=== PATIENT | male | born 1990 | race Two or more races ===

== ENCOUNTER 2016-07-24 16:22 | Emergency (ER) | payer MEDICAID ==
[~2016-07-24] VITALS: Ht 170.2 cm; Wt 97.5 kg
[2016-07-24 22:25] LABS: Basophils # (auto) 0.2 uL; Basophils % (auto) 1.3 % (0.0-2.0); Eosinophils # (auto) 0.3 uL; Eosinophils % (auto) 2.8 % (0.0-7.0); Hematocrit 46.5 % (41.0-53.0); Hemoglobin 15.5 g/dL (13.5-17.5); Lymphocytes # (auto) 2.8 uL; Lymphocytes % (auto) 24.1 % (10.0-50.0); Mean Corpuscular Hemoglobin 29.2 pg (28.0-32.0); Mean Corpuscular Hgb Conc. 33.3 g/dL (32.0-36.0); Mean Corpuscular Volume 87.8 fL (80.0-100.0); Mean Platelet Volume 7.8 fL (7.4-10.4); Monocytes # (auto) 0.6 uL; Monocytes % (auto) 5.3 % (0.0-12.0); Neutrophils # (auto) 7.6 uL; Neutrophils % (auto) 66.5 % (37.0-80.0); Platelet Count (auto) 355 10^3/uL (140-450); Red Cell Distribution Width 13.2 % (11.6-16.0); White Blood Cell 11.5 10^3/uL (4.4-10.8)
[2016-07-24 22:46] LABS: Albumin 4.1 g/dL (3.4-5.0); BUN/Creatinine Ratio 18.3; Bilirubin, Total 0.4 mg/dL (0.2-1.0); Total Protein 8.4 g/dL (6.4-8.2)
[2016-07-25] MEDS ORDERED: ACETAMINOPHEN 325 MG TAB PO ONE (08:15)
[2016-07-25] MEDS ORDERED: IOHEXOL 300 MG/ML 100ML BOTTLE IJ ONE (09:37)
[2016-07-25 13:15] VITALS: BP 117/48
== END 2016-07-25 14:35 | disposition home or self-care (01) ==
LOC: ER 16:34
DX: K61.0 Anal abscess (principal)
CPT/HCPCS: 36415; 74177; 80053; 85025; 85049; 99285; Q9967

== ENCOUNTER 2019-04-09 08:54 | Emergency (ER) | payer MEDICAID ==
[~2019-04-09] VITALS: Ht 167.6 cm; Wt 70.8 kg
[2019-04-09 09:00] VITALS: BP 124/77
== END 2019-04-09 10:08 | disposition home or self-care (01) ==
LOC: ER 08:58
DX: K61.0 Anal abscess (principal); K61.1 Rectal abscess; F17.210 Nicotine dependence, cigarettes, uncomplicated; F12.90 Cannabis use, unspecified, uncomplicated
CPT/HCPCS: 46050

== ENCOUNTER 2022-09-12 17:52 | Emergency (ER) | payer MEDICAID ==
[~2022-09-12] VITALS: Ht 175.3 cm; Wt 100.0 kg
[2022-09-12] MEDS ORDERED: SODIUM CHLORIDE 0.9% 1,000 ML IV ONE (18:30)
[2022-09-12] MEDS ORDERED: EPINEPHrine HCL 1 MG/1 ML AMP IM ONE (18:30)
[2022-09-12] MEDS ORDERED: FAMOTIDINE (10MG/ML) 2ML VL IV ONE (18:30)
[2022-09-12] MEDS ORDERED: DexAMETHasone SOD PHOS 10MG/1ML VIAL INJ IV ONE (18:30)
[2022-09-12 18:37] LABS: Basophils # (auto) 0 10 ^3/uL (0-0.2); Basophils % (auto) 0.5 % (0.0-2.0); Eosinophils # (auto) 0.1 10 ^3/uL (0-0.8); Eosinophils % (auto) 1.7 % (0.0-7.0); Hematocrit 46.9 % (41.0-53.0); Hemoglobin 16.4 g/dL (13.5-17.5); Lymphocytes # (auto) 2.1 10 ^3/uL (0.4-5.4); Lymphocytes % (auto) 25.4 % (10.0-50.0); Mean Corpuscular Hemoglobin 31.4 pg (28.0-32.0); Mean Corpuscular Hgb Conc. 34.8 g/dL (32.0-36.0); Mean Corpuscular Volume 90.3 fL (80.0-100.0); Monocytes # (auto) 0.6 10 ^3/uL (0-1.3); Neutrophils # (auto) 5.3 10 ^3/uL (1.6-8.6); Neutrophils % (auto) 65.4 % (37.0-80.0); Nucleated Red Blood Cells % 0.2 %; Red Cell Distribution Width 13.6 % (11.8-14.3); White Blood Cell 8.2 10^3/uL (4.4-10.8)
[2022-09-12 18:57] LABS: Calcium 8.7 mg/dL (8.5-10.1); Potassium 3.7 mmol/L (3.5-5.1)
[2022-09-12 19:01] LABS: BUN/Creatinine Ratio 11.1; Bilirubin, Total 0.3 mg/dL (0.2-1.0); Total Protein 7.5 g/dL (6.4-8.2)
[2022-09-12] MEDS ORDERED: EPIN0.3I27 IJ ×2 (22:13)
[2022-09-12 22:28] VITALS: BP 130/78
[2022-09-13] MEDS ORDERED: EPIN0.3I27 IJ (11:58)
== END 2022-09-12 22:27 | disposition home or self-care (01) ==
LOC: EDBD 17:52 → ER 17:52
DX: T78.2XXA Anaphylactic shock, unspecified, initial encounter (principal); F17.210 Nicotine dependence, cigarettes, uncomplicated; R07.89 Other chest pain
CPT/HCPCS: 36415; 71045; 80053; 85025; 96361; 96372; 96374; 96375; 99284; J0171; J1100; J3490; J7030

== ENCOUNTER 2024-09-06 13:06 | Emergency (ER) | payer MEDICAID ==
[~2024-09-06] VITALS: Ht 170.2 cm; Wt 100.9 kg
[~2024-09-06 13:06] MED LIST: EPIN0.3I27 IJ
--- NOTE | 2024-09-06 13:24 | ED.PDOC ---
HPI Allergic reaction HPI Comments 34 year old male presents to the ED with chief complaint of allergic reaction. Patient reports that he had started to experience generalized urticaria with associated itchiness and throat swelling since an hour ago. Patient relays that he has had multiple similar episodes in the past, noting that the time frame in between episodes has been shortening, with the last one being on 08/10. Patient denies any N/V, SOB, chest pain, dizziness, or headache. Chief Complaint: Allergic Reaction Time Seen by MD: 13:20 Primary Care Provider: SHANEKA Reviewed Notes: Nurses Notes, Medications, Allergies Allergies: Coded Allergies: NO KNOWN ALLERGIES (Unverified , 07/24/16) Home Meds Active Scripts Epinephrine (Anaphylaxis) (Symjepi) 0.3 Mg/0.3 Ml Inj, 0.3 MG IJ PRN PRN for 365 Days, #2 INJ Prov:CALI WAY MD 09/13/22 Information Source: Patient Mode of Arrival: Ambulatory Severity: Moderate Rash: Moderate SOB: None Difficulty swallowing: Moderate Pruritus: Moderate Timing: Hours Duration: Since onset Prehospital treatment: None Location: Face, Foot, Generalized, Head, Neck, Throat Exposed to: Unknown Developed: Pruritus, Rash, Throat Swelliing History of: Prior Similar Episodes Modyifying Factors: Diphenhydramine Past Medical History PAST MEDICAL HISTORY: Denies Surgical History: Denies all surgeries Family History Family History: Unknown Family History (Other): father had intestinal problems Social History Smoker: Cigarettes Alcohol: Heavy Drugs: Marijuana Lives In: Home Constitutional: denies: chills, diaphoresis, fatigue, fever, malaise, sweats, weakness, others EENTM: reports: throat swelling; denies: blurred vision, double vision, ear bleeding, ear discharge, ear drainage, ear pain, ear ringing, eye pain, eye redness, hearing loss, mouth pain, mouth swelling, nasal discharge, nose bleeding, nose congestion, nose pain, photophobia, tearing, throat pain, voice changes, others Respiratory: denies: cough, hemoptysis, orthopnea, SOB at rest, shortness of breath, SOB with excertion, stridor, wheezing, others Cardiovascular: denies: chest pain, dizzy spells, diaphoresis, Dyspnea on exertion, edema, irregular heart beat, left arm pain, lightheadedness, palpitations, PND, syncope, others Gastrointestinal: denies: abdomen distended, abdominal pain, blood streaked bowels, constipated, diarrhea, dysphagia, difficulty swallowing, hematemesis, melena, nausea, poor appetite, poor fluid intake, rectal bleeding, rectal pain, vomiting, others Genitourinary: denies: burning, dysuria, flank pain, frequency, hematuria, incontinence, penile discharge, penile sore, pain, testicle pain, testicle swelling, urgency, others Neurological: denies: dizziness, fainting, headache, left sided numbness, left sided weakness, numbness, paresthesia, pre-existing deficit, right sided numbness, right sided weakness, seizure, speech problems, tingling, tremors, weakness, others Musculoskeletal: denies: back pain, gout, joint pain, joint swelling, muscle pain, muscle stiffness, neck pain, others Integumetry: reports: change in color; denies: bruises, change in hair/nails, dryness, laceration, lesions, lumps, rash, wounds, others Allergic/Immunocompromised: reports: Hives, Itching; denies: Difficulty Healing, Frequent Infections, others Hematologic/Lymphatic: denies: anemia, blood clots, easy bleeding, easy bruising, swollen glands, others Endocrine: denies: excessive hunger, excessive sweating, excessive thirst, excessive urination, flushing, intolerance to cold, intolerance to heat, unex plained weight gain, unexplained weight loss, others Psychiatric: denies: anxiety, bipolar disorder, depression, hopeless, panic disorder, schizophrenia, sleepless, suicidal, others All Other Systems: Reviewed and Negative Physical Exam General Appearance: Moderate Distress, Normal HEENT: Normal ENT Inspection, PERRL/EOMI Neck: Full Range of Motion, Non-Tender, Normal, Normal Inspection Respiratory: Chest Non-Tender, No Accessory Muscle Use, No Respiratory Distress, Other (Coarse breath sounds) Cardiovascular: No Edema, No JVD, No Murmur, No Gallop, Normal Peripheral Pulses, Regular Rate/Rhythm Breast Exam: Deferred Gastrointestinal: No Organomegaly, Non Tender, No Pulsatile Mass, Normal Bowel Sounds, Soft Genitalia: Deferred Pelvic: Deferred Rectal: Deferred Extremities: No calf tenderness, Normal capillary refill, Normal inspection, Normal range of motion, Non-tender, No pedal edema Musculoskeletal : Apperance: Normal Neurologic: Alert, laborer aquatic life II-XII nml as Tested, No Motor Deficits, Normal Affect, Normal Mood, No Sensory Deficits Cerebellar Function: NOT DONE Reflexes: NOT DONE Skin: Dry, Normal Color, Rash (Face), Warm Peripheral Pulses: 3+ Radial (R), 3+ Radial (L) Lymphatic: No Adenopathy Was a procedure done? Was a procedure done?: No Differential diagnosis (all) Differential Diagnosis: Anaphylaxis, Angioedema X-Ray, Labs, Meds, VS Vital Signs Date Time Temp Pulse Resp B/P (MAP) Pulse Ox O2 Delivery O2 Flow Rate FiO2 09/06/24 14:19 82 16 135/80 (98) 97 09/06/24 13:41 82 20 98 Room Air* 0 21 09/06/24 13:41 99.1 82 16 136/81 (99) 97 99.1 09/06/24 13:23 99.1 82 16 137/85 (102) 97 09/06/24 13:23 16 97 Room Air* 0 21 Lab Test 09/06/24 13:40 Range/Units White Blood Count 7.8 4.4-10.8 10^3/uL Red Blood Count 5.57 4.5-5.90 10^6/uL Hemoglobin 17.0 13.5-17.5 g/dL Hematocrit 50.4 41.0-53.0 % Mean Corpuscular Volume 90.5 80.0-100.0 fL Mean Corpuscular Hemoglobin 30.5 28.0-32.0 pg Mean Corpuscular Hemoglobin Concent 33.7 32.0-36.0 g/dL Red Cell Distribution Width 14.0 11.8-14.3 % Platelet Count 329 140-450 10^3/uL Mean Platelet Volume 7.9 6.9-10.8 fL Neutrophils (%) (Auto) 58.9 37.0-80.0 % Lymphocytes (%) (Auto) 30.0 10.0-50.0 % Monocytes (%) (Auto) 7.2 0.0-12.0 % Eosinophils (%) (Auto) 3.2 0.0-7.0 % Basophils (%) (Auto) 0.7 0.0-2.0 % Neutrophils # (Auto) 4.6 1.6-8.6 10 ^3/uL Lymphocytes # (Auto) 2.3 0.4-5.4 10 ^3/uL Monocytes # (Auto) 0.6 0-1.3 10 ^3/uL Eosinophils # (Auto) 0.2 0-0.8 10 ^3/uL Basophils # (Auto) 0.1 0-0.2 10 ^3/uL Nucleated Red Blood Cells 0.1 % Sodium Level 141 136-145 mmol/L Potassium Level 3.8 3.5-5.1 mmol/L Chloride Level 108 H 98-107 mmol/L Carbon Dioxide Level 22 20-31 mmol/L Anion Gap 11 5-15 Blood Urea Nitrogen 14 9-23 mg/dL Creatinine 0.99 0.700-1.30 mg/dL Glomerular Filtration Rate Calc 101 >90 mL/min BUN/Creatinine Ratio 14.1 10.0-20.0 Serum Glucose 117 H 74-106 mg/dL Calcium Level 9.9 8.7-10.4 mg/dL Current Medications Medications (Trade) Dose Ordered Sig/Ivis Route Start Time Stop Time Status Last Admin Methylprednisolone Sodium Succinate (Solu Medrol) 125 mg ONCE ONCE IV 09/06/24 13:30 09/06/24 13:31 DC 09/06/24 13:38 Diphenhydramine HCl (Benadryl Injection) 25 mg ONCE ONCE IV 09/06/24 13:30 09/06/24 13:31 DC 09/06/24 13:39 Patient alert. Has a rash in his face. Rest started an hour ago. Vitals stable. Has difficulty swallowing. He feels the throat is closing. Establish intravenous access. Was given steroid. Was given Benadryl. Has been having allergic reaction almost every month. Explained to the patient. Continue monitoring. Time of 1ST Reevaluation: 14:20 Reevaluation 1ST: Unchanged Patient Education/Counseling: Diagnosis, Treatment Family Education/Counseling: No Family Present Additional Information The following tests were ordered, and results were reviewed by me: CBC, BMP, CXR Additional Information was gathered from interviewing the following independent historians: None I reviewed and agreed with the following test results read by other providers: CXR I discussed treatment and results with medical personnel. Departure 1 Departure Time of Disposition: 13:26 Impression: Primary Impression: Allergic reaction Qualified Codes: T78.40XA - Allergy, unspecified, initial encounter Disposition: 09 ADMITTED INPATIENT Admit to: Med Surg Condition: Guarded Critical Care Note Critical Care Time?: No Stability Stability form required: No Heart Score Heart Score: Heart Score Response (Comments) Value History N/A 0 EKG N/A 0 Age N/A 0 Risk Factors N/A 0 Troponin N/A 0 Total 0 I personally scribed for SARAI GARZA MD ([email or web address]) on 09/06/24 at 13:24. Electronically submitted by Alex Curiel ([email or web address]). I personally scribed for SARAI GARZA MD ([email or web address]) on 09/06/24 at 15:39. Electronically submitted by Alex Curiel ([email or web address]). SARAI GARZA MD Sep 06, 2024 13:24
[2024-09-06] MEDS: methylPREDNISolone SOD SUCC 125 MG/2 ML VL IV ONE (13:38)
[2024-09-06] MEDS: diphenhdrAMINE HCL 50 MG/1 ML VL IV ONE (13:39)
[2024-09-06 13:41] VITALS: PULSE 82; RESP 20; TEMP 99.1; O2SAT 98
--- NOTE | 2024-09-06 13:44 | DVH ---
EXAM: XY CHEST PORTABLE Indication: sob Technique: Single frontal view of the chest was obtained Comparison: XY CHEST PORTABLE on DOS: 09/12/22 FINDINGS: Lines and Tubes: None Lungs: No focal consolidation. Pleura: No effusion. No pneumothorax. Cardiomediastinal contours: Unremarkable Bones: No acute osseous abnormality. IMPRESSION: No acute cardiopulmonary disease.
[2024-09-06 14:03] LABS: Basophils # (auto) 0.1 10 ^3/uL (0-0.2); Basophils % (auto) 0.7 % (0.0-2.0); Eosinophils # (auto) 0.2 10 ^3/uL (0-0.8); Eosinophils % (auto) 3.2 % (0.0-7.0); Hematocrit 50.4 % (41.0-53.0); Lymphocytes # (auto) 2.3 10 ^3/uL (0.4-5.4); Mean Corpuscular Hemoglobin 30.5 pg (28.0-32.0); Mean Corpuscular Hgb Conc. 33.7 g/dL (32.0-36.0); Mean Corpuscular Volume 90.5 fL (80.0-100.0); Monocytes # (auto) 0.6 10 ^3/uL (0-1.3); Monocytes % (auto) 7.2 % (0.0-12.0); Neutrophils # (auto) 4.6 10 ^3/uL (1.6-8.6); Neutrophils % (auto) 58.9 % (37.0-80.0); Nucleated Red Blood Cells % 0.1 %; Platelet Count (auto) 329 10^3/uL (140-450); Red Blood Cells 5.57 10^6/uL (4.5-5.90); White Blood Cell 7.8 10^3/uL (4.4-10.8)
[2024-09-06 14:19] VITALS: BP 135/80; PULSE 82; RESP 16; O2SAT 97
[2024-09-06 14:21] LABS: Potassium 3.8 mmol/L (3.5-5.1); Sodium 141 mmol/L (136-145)
[2024-09-06 14:22] LABS: Anion Gap 11 (5-15); Calcium 9.9 mg/dL (8.7-10.4); Carbon Dioxide 22 mmol/L (20-31)
[2024-09-06 14:27] LABS: BUN/Creatinine Ratio 14.1 (10.0-20.0); Blood Urea Nitrogen 14 mg/dL (9-23)
[2024-09-06 14:52] LABS: Chloride 108 mmol/L (98-107); Glucose 117 mg/dL (74-106)
[2024-09-06] MEDS ORDERED: diphenhdrAMINE HCL 25 MG CAP PO PRN (19:15)
[2024-09-06] MEDS ORDERED: FAMOTIDINE (10MG/ML) 2ML VL IV ONE (19:15)
[2024-09-06] MEDS ORDERED: ONDANSETRON HCL 4 MG/2 ML VIAL IV PRN (19:15)
[2024-09-06] MEDS ORDERED: ACETAMINOPHEN 325 MG TAB PO PRN (19:15)
[2024-09-06] MEDS ORDERED: TEMAZEPAM 15 MG CAP PO PRN (19:15)
[2024-09-06] MEDS ORDERED: SODIUM CHLORIDE 0.9% 500 ML IV ONE (19:15)
[2024-09-07] MEDS ORDERED: FAMOTIDINE (10MG/ML) 2ML VL IV SCH (10:00)
== END 2024-09-06 20:36 | disposition left against medical advice (07) ==
LOC: ER 13:06 → UNDOADMIN 19:02 → OVERFLOW 19:02 → ER 20:36
DX: T78.40XA Allergy, unspecified, initial encounter (principal); F17.210 Nicotine dependence, cigarettes, uncomplicated; X58.XXXA Exposure to other specified factors, initial encounter
CPT/HCPCS: 36415; 71045; 80048; 85025; 96374; 96375; 99284; J1200; J2919

== ENCOUNTER 2024-10-06 13:17 | Emergency (ER) | payer MEDICAID ==
[~2024-10-06] VITALS: Ht 170.2 cm; Wt 102.3 kg
--- NOTE | 2024-10-06 13:44 | ED.PDOC ---
HPI Allergic reaction HPI Comments 34-year-old male brought in by EMS presents with a chief complaint of idiopathetic allergic reaction x 40 minutes prior to arrival. Patient states that he was eating [place] food when he began to experience flushing to the skin, itchiness. Patient reports that he took 2 of his Epinephrine's after feeling his symptoms. Patient mentions that this has happened to him once before and it was idiopathetic as well. Patient is currently asymptomatic at this time upon ER arrival. Patient was given fluids per EMS and O2 for [place]. Patient initial heart rate initially was 140 in the field. Patient denies any wheezing hypotension dizziness or any throat complaints. All symptoms have resolved prior to my evaluation with the exception of the generalized redness in her his body torso and extremities and face that is blanching hives like presentation PMHx: Denies PSHx: Denies SHx: Cigarette Use, Alcohol Use, Marijuana Use HPI: Poor Historian. REVIEW OF SYSTEMS: CONSTITUTIONAL: Denies acute: fever, diaphoresis, chills, generalized weakness. HEAD: Denies acute: headache, photophobia Eyes: Denies acute: Double vision, vision loss, eye pain, eye discharge. EARS: Denies acute: tinnitus, hearing loss, ear discharge, ear pain, THROAT: Denies acute: sore throat, swelling, difficulty swallowing , pain with swallowi ng, change in voice. NECK: Denies acute: neck pain, neck swelling, stiff neck. HEART: Denies acute : chest pain, palpitations, LUNGS: Denies acute: SOB, wheezing, cough, hemoptysis ABDOMEN: Denies acute: abdominal pain, Nausea, Vomiting, diarrhea, melena , hematemesis, hematochezia SKIN: Denies acute: lesions, EXTREMITIES: Denies acute: calf pain, numbness, tingling, weakness, denies pain in extremity. Denies acute: Low back pain. Neuro: Denies acute: focal neurological deficit, motor or sensory focal neurological deficit, tremors, seizure like activity, confusion, dizziness, change in mental status, loss of bowel or bladder function, cauda equina like symptoms. : Denies acute: dysuria, hematuria, flank pain, increase in urinary frequency. PSYCH: Denies acute: hallucination, suicidal ideation, homicidal ideation. PHYSICAL EXAM: General: no acute distress, awake and alert. Head: normocephalic, atraumatic. Neck: supple, trachea is midline, no swelling. Throat: Normal phonation. No airway obstruction, no swelling, no drooling, no tripoding Eyes:, no erythema, no purulent discharge, no proptosis, no icterus. Heart: regular rate, regular rhythm, no significant murmur appreciated. Lungs: no apparent respiratory distress, Able to speak in full sentences. No wheezing, no rhonchi, no crackles. No stridors Clear to auscultation bilaterally. Abdomen: non tender to palpation, non distended, soft, no guarding, no rebound, + bowel sounds. Neuro: Awake, Alert, oriented to name, self, situation, follows commands GCS=15. Speech is normal. Skin: no petechia, no purpura, no cyanosis, non-pale, not jaundice. Lower extremities: --no - Pitting edema no deformity, no focal swelling, no calf TTP. Makes eye contact. moves all four extremities. Face: no apparent facial droop. Ambulating in the ED independently. ED COURSE: Time Seen by MD: 13:33 Primary Care Provider: SHANEKA Caceres Notes: Nurses Notes, Medications, Allergies Allergies: Coded Allergies: NO KNOWN ALLERGIES (Unverified , 07/24/16) Home Meds Active Scripts Epinephrine (Anaphylaxis) (Auvi-Q) 0.1 Mg/0.1 Ml Inj, 0.1 MG IJ O PRN for 1 Day, #1 INJ Prov:MECHE CASTILLO DO 10/06/24 Prednisone (Prednisone) 20 Mg Tab, 20 MG PO DAILY for 5 Days, #5 TAB Prov:MECHE CASTILLO DO 10/06/24 Epinephrine (Anaphylaxis) (Symjepi) 0.3 Mg/0.3 Ml Inj, 0.3 MG IJ PRN PRN for 365 Days, #2 INJ Prov:CALI WAY MD 09/13/22 Information Source: Patient, Emergency Med Personnel Mode of Arrival: EMS Past Medical History PAST MEDICAL HISTORY: Denies Surgical History: Denies all surgeries Family History Family History: Unknown Family History (Other): father had intestinal problems Social History Smoker: Cigarettes Alcohol: Heavy Drugs: Marijuana Lives In: Home Was a procedure done? Was a procedure done?: No Differential diagnosis (all) Differential Diagnosis: Anaphylaxis, Angioedema, Bronchospasm, Contact Dermatitis, Drug Reaction, Hypotension, Renal Failure, Respiratory Failure, Shock, Urticaria X-Ray, Labs, Meds, VS Vital Signs Date Time Temp Pulse Resp B/P (MAP) Pulse Ox O2 Delivery O2 Flow Rate FiO2 10/06/24 17:47 98.5 100 16 157/86 (109) 96 98.5 10/06/24 15:23 98.9 85 17 135/87 (103) 97 98.9 10/06/24 13:57 Room Air* 0 21 10/06/24 13:49 92 18 95 Room Air 10/06/24 13:49 97.4 92 18 104/51 (68) 95 97.4 10/06/24 13:38 20 96 Room Air* 0 21 10/06/24 13:38 99.0 105 20 111/66 (81) 96 99.0 Lab Test 10/06/24 16:09 10/06/24 15:02 10/06/24 13:55 Range/Units Lactic Acid Level 2.3 *H 2.4 *H 0.4-2.0 mmol/L Troponin I High Sensitivity 7 < 3 L </=54 ng/L White Blood Count 8.1 4.4-10.8 10^3/uL Red Blood Count 5.39 4.5-5.90 10^6/uL Hemoglobin 16.8 13.5-17.5 g/dL Hematocrit 49.5 41.0-53.0 % Mean Corpuscular Volume 91.7 80.0-100.0 fL Mean Corpuscular Hemoglobin 31.2 28.0-32.0 pg Mean Corpuscular Hemoglobin Concent 34.0 32.0-36.0 g/dL Red Cell Distribution Width 13.7 11.8-14.3 % Platelet Count 385 140-450 10^3/uL Mean Platelet Volume 7.9 6.9-10.8 fL Neutrophils (%) (Auto) 48.6 37.0-80.0 % Lymphocytes (%) (Auto) 43.2 10.0-50.0 % Monocytes (%) (Auto) 5.6 0.0-12.0 % Eosinophils (%) (Auto) 2.1 0.0-7.0 % Basophils (%) (Auto) 0.5 0.0-2.0 % Neutrophils # (Auto) 3.9 1.6-8.6 10 ^3/uL Lymphocytes # (Auto) 3.5 0.4-5.4 10 ^3/uL Monocytes # (Auto) 0.5 0-1.3 10 ^3/uL Eosinophils # (Auto) 0.2 0-0.8 10 ^3/uL Basophils # (Auto) 0 0-0.2 10 ^3/uL Nucleated Red Blood Cells 0.2 % Sodium Level 140 136-145 mmol/L Potassium Level 4.0 3.5-5.1 mmol/L Chloride Level 107 98-107 mmol/L Carbon Dioxide Level 20 20-31 mmol/L Anion Gap 13 5-15 Blood Urea Nitrogen 15 9-23 mg/dL Creatinine 1.05 0.700-1.30 mg/dL Glomerular Filtration Rate Calc 94 >90 mL/min BUN/Creatinine Ratio 14.3 10.0-20.0 Serum Glucose 220 H 74-106 mg/dL Calcium Level 9.4 8.7-10.4 mg/dL Magnesium Level 1.7 1.6-2.6 mg/dL Total Bilirubin 0.5 0.2-1.0 mg/dL Aspartate Amino Transferase (AST) 32 13-40 U/L Alanine Aminotransferase (ALT) 51 H 7-40 U/L Alkaline Phosphatase 56 46-116 U/L Total Protein 6.8 5.7-8.2 g/dL Albumin 4.3 3.2-4.8 g/dL Current Medications Medications (Trade) Dose Ordered Sig/Ivis Route Start Time Stop Time Status Last Admin Methylprednisolone Sodium Succinate (Solu Medrol) 125 mg ONCE ONCE IV 10/06/24 13:45 10/06/24 13:46 DC 10/06/24 13:50 Diphenhydramine HCl (Benadryl Injection) 50 mg ONCE ONCE IV 10/06/24 13:45 10/06/24 13:46 DC 10/06/24 13:49 Famotidine (Pepcid Injection) 20 mg ONCE ONCE IV 10/06/24 13:45 10/06/24 13:46 DC 10/06/24 13:49 Sodium Chloride 1,000 ml @ 1,000 mls/hr Q1H ONCE IV 10/06/24 13:45 10/06/24 14:44 DC 10/06/24 13:52 Sodium Chloride 1,000 ml @ 1,000 mls/hr Q1H ONCE IV 10/06/24 14:45 10/06/24 15:44 DC 10/06/24 14:37 Sodium Chloride 1,000 ml @ 1,000 mls/hr Q1H ONCE IV 10/06/24 17:15 10/06/24 18:14 DC 10/06/24 17:25 Time of 1ST Reevaluation: 14:03 Reevaluation 1ST: Unchanged Time of 2ND Reevaluation: 15:35 Reevaluation 2ND: Resolved Patient Education/Counseling: Diagnosis, Treatment Family Education/Counseling: No Family Present Comments Patient requested epinephrine pen refill Patient lactic acid was elevated despite fluid hydration. I added more normal saline boluses however repeat lactic acid was not available because patient eloped. Patient presented with the above HPI.---allergic reaction---workup was initiated. patient was found with the above mentioned diagnosis. Patient was evaluated immediately upon arrival. the following medications were ordered: please refer to order lists of meds and tests obtained by myself Dr. Castillo. Patient ED course and VS have been stabilized. Patient has been reassessed in the ED and remained in a stable condition. Pertinent incidental findings were discussed with the patient and/or family. Patient/family voices understanding and is agreeable with plan. Patient has been observed in the ED adequate length of time to insure improvement/stability. Escalation of care considered: Consideration of escalation to observation or admission Patient eloped. All the reports of any imaging studies that were ordered by myself were reviewed by myself. Departure 1 Departure Time of Disposition: 15:33 Impression: Primary Impression: Allergic reaction Qualified Codes: T78.40XA - Allergy, unspecified, initial encounter Additional Impressions: Eloped from emergency department Elevated lactic acid level Disposition: 07 LEFT AWOL/ELOPED Condition: Stable Additional Instructions: Patient eloped. Below is a set of instructions in case he returns back Additional discharge instructions: You MUST follow-up with your primary care/family doctor in 1 to 2 days. If you are unable to see your primary care/family doctor, please return to our emergency room for re-assessment and re-evaluation in 1 to 2 days. Return to the emergency room here in our facility or to the nearest ER [facility] if your symptoms change or worsen. CONSULTATIONS: you MUST Follow-up for consultation as soon as possible with: string laster in 1-2 days. Please call for appointment. You MUST call the consultants office yourself to make an appointment. You may need to arrange that through your insurance and/or your primary/family doctor. If you are unable to see the practice consultant in 1 to 2 days, you must return to our emergency room (or any other ER of your choice) for re-assessment and re- evaluation. Adequate fluid hydration. Use the following [id number] medications for the next five days.: Benadryl 25 mg one pill by mouth daily for five days. Pepcid 20 mg one pill by mouth daily for five days. e-Prescriptions Epinephrine (Anaphylaxis) (Auvi-Q) 0.1 Mg/0.1 Ml Inj 0.1 MG IJ O PRN for 1 Day, #1 INJ Prov: MECHE CASTILLO DO 10/06/24 Prednisone (Prednisone) 20 Mg Tab 20 MG PO DAILY for 5 Days, #5 TAB Prov: MECHE CASTILLO DO 10/06/24 Discharged With: Self Critical Care Note Critical Care Time?: Yes (35 min-critical care time only) I personally scribed for MECHE CASTILLO DO ([email or web address]) on 10/06/24 at 13:44. Electronically submitted by Neno Alvarez ([email or web address]). MECHE CASTILLO DO Oct 06, 2024 13:44
[2024-10-06] MEDS: FAMOTIDINE (10MG/ML) 2ML VL IV ONE (13:49)
[2024-10-06] MEDS: diphenhdrAMINE HCL 50 MG/1 ML VL IV ONE (13:49)
[2024-10-06] MEDS: methylPREDNISolone SOD SUCC 125 MG/2 ML VL IV ONE (13:50)
[2024-10-06] MEDS: SODIUM CHLORIDE 0.9% 1,000 ML IV ONE ×3 (13:52→17:25)
[2024-10-06 14:10] LABS: Basophils # (auto) 0 10 ^3/uL (0-0.2); Basophils % (auto) 0.5 % (0.0-2.0); Eosinophils # (auto) 0.2 10 ^3/uL (0-0.8); Eosinophils % (auto) 2.1 % (0.0-7.0); Hematocrit 49.5 % (41.0-53.0); Hemoglobin 16.8 g/dL (13.5-17.5); Lymphocytes # (auto) 3.5 10 ^3/uL (0.4-5.4); Lymphocytes % (auto) 43.2 % (10.0-50.0); Mean Corpuscular Hemoglobin 31.2 pg (28.0-32.0); Mean Corpuscular Volume 91.7 fL (80.0-100.0); Monocytes # (auto) 0.5 10 ^3/uL (0-1.3); Monocytes % (auto) 5.6 % (0.0-12.0); Neutrophils # (auto) 3.9 10 ^3/uL (1.6-8.6); Neutrophils % (auto) 48.6 % (37.0-80.0); Nucleated Red Blood Cells % 0.2 %; Platelet Count (auto) 385 10^3/uL (140-450); Red Blood Cells 5.39 10^6/uL (4.5-5.90); Red Cell Distribution Width 13.7 % (11.8-14.3); White Blood Cell 8.1 10^3/uL (4.4-10.8)
[2024-10-06 14:26] LABS: Albumin 4.3 g/dL (3.2-4.8); Alkaline Phosphatase 56 U/L (46-116); Anion Gap 13 (5-15); Aspartate Aminotransferase 32 U/L (13-40); BUN/Creatinine Ratio 14.3 (10.0-20.0); Blood Urea Nitrogen 15 mg/dL (9-23); Calcium 9.4 mg/dL (8.7-10.4); Lactic Acid w/Reflex 2.4 mmol/L (0.4-2.0); Magnesium 1.7 mg/dL (1.6-2.6); Sodium 140 mmol/L (136-145); Total Protein 6.8 g/dL (5.7-8.2)
[2024-10-06 14:27] LABS: Alanine Aminotransferase 51 U/L (7-40); Bilirubin, Total 0.5 mg/dL (0.2-1.0); Carbon Dioxide 20 mmol/L (20-31); Chloride 107 mmol/L (98-107); Glucose 220 mg/dL (74-106)
[2024-10-06] MEDS ORDERED: PRED20TA2 PO (15:35)
[2024-10-06] MEDS ORDERED: EPIN0.1I11 IJ (15:35)
[2024-10-06 17:47] VITALS: BP 157/86; PULSE 100; RESP 16; TEMP 98.5; O2SAT 96
== END 2024-10-06 19:40 | disposition left against medical advice (07) ==
LOC: EDBD 13:17 → EDUNIT# 13:17 → ER 13:23
DX: T78.40XA Allergy, unspecified, initial encounter (principal); R74.02 Elevation of levels of lactic acid dehydrogenase [LDH]; F17.210 Nicotine dependence, cigarettes, uncomplicated; Z79.52 Long term (current) use of systemic steroids; Z79.899 Other long term (current) drug therapy; X58.XXXA Exposure to other specified factors, initial encounter
CPT/HCPCS: 36415; 80053; 83605; 83735; 84484; 85025; 96361; 96374; 96375; 99284; J1200; J2919; J3490; J7030

== ENCOUNTER 2025-01-09 20:03 | Emergency (ER) | payer MEDICAID ==
[~2025-01-09] VITALS: Ht 170.2 cm; Wt 102.3 kg
[~2025-01-09 20:03] MED LIST changes: +EPIN0.1I11 IJ; +PRED20TA2 PO
[2025-01-09 20:10] VITALS: BP 150/78; PULSE 116; RESP 18; TEMP 97.8; O2SAT 96
[2025-01-09] MEDS ORDERED: PRED20TA2 PO (20:38)
[2025-01-09] MEDS ORDERED: DIPH25CA66 PO (20:38)
--- NOTE | 2025-01-09 20:38 | ED.PDOC ---
HPI Allergic reaction HPI Comments 34 year old male presents to ER with complaints of allergic reaction x 1 hour. Patient presents VIA EMS, reporting that he started experiencing itchy red hives to face 1 hour prior to arrival to ER that he states started 30 minutes after he was eating left overs of pork/beef and rice at home. Denies any known allergies and states he's had similar symptoms on/off x 5 years that he states occurs without any known triggers. Notes he did give himself an IM epi injection at home and was given Benadryl by EMS with significant improvement in symptoms. Patient presents to ER ambulatory, in no distress and states he's never followed up with an vascular surgeon. Denies shortness of breath, chest pain, difficulty swallowing, n/v, abdominal pain or any further symptoms/complaints Chief Complaint: Allergic Reaction Time Seen by MD: 20:14 Primary Care Provider: ONDINA Reviewed Notes: Nurses Notes, Medications, Allergies Allergies: Coded Allergies: NO KNOWN ALLERGIES (Unverified , 07/24/16) Home Meds Active Scripts Epinephrine (Epinephrine) 0.3 Mg/0.3 Ml Inj, 0.3 MG IJ ONCE, #1 INJ 0 Refills Prov:ALEXEI BRISCOE 01/09/25 Prednisone (Prednisone) 20 Mg Tab, 20 MG PO BID for 5 Days, #10 TAB 0 Refills Prov:ALEXEI BRISCOE 01/09/25 Diphenhydramine Hcl (Benadryl Allergy) 25 Mg Cap, 2 CAP PO Q6HPRN, #30 CAP 0 Refills Prov:ALEXEI BRISCOE 01/09/25 Epinephrine (Anaphylaxis) (Auvi-Q) 0.1 Mg/0.1 Ml Inj, 0.1 MG IJ O PRN for 1 Day, #1 INJ Prov:MECHE CASTILLO DO 10/06/24 Prednisone (Prednisone) 20 Mg Tab, 20 MG PO DAILY for 5 Days, #5 TAB Prov:MECHE CASTILLO DO 10/06/24 Epinephrine (Anaphylaxis) (Symjepi) 0.3 Mg/0.3 Ml Inj, 0.3 MG IJ PRN PRN for 365 Days, #2 INJ Prov:CALI WAY MD 09/13/22 Information Source: Patient Mode of Arrival: EMS Past Medical History PAST MEDICAL HISTORY: Denies Surgical History: Denies all surgeries Family History Family History: Unknown Social History Smoker: Cigarettes, Less Than 1 Pack/Day Alcohol: Occasionally Drugs: Marijuana Lives In: Home Constitutional: denies: chills, diaphoresis, fatigue, fever, malaise, sweats, weakness, others EENTM: denies: blurred vision, double vision, ear bleeding, ear discharge, ear drainage, ear pain, ear ringing, eye pain, eye redness, hearing loss, mouth pain, mouth swelling, nasal discharge, nose bleeding, nose congestion, nose pain, photophobia, tearing, throat pain, throat swelling, voice changes, others Respiratory: denies: cough, hemoptysis, orthopnea, SOB at rest, shortness of breath, SOB with excertion, stridor, wheezing, others Cardiovascular: denies: chest pain, dizzy spells, diaphoresis, Dyspnea on exertion, edema, irregular heart beat, left arm pain, lightheadedness, palpitations, PND, syncope, others Gastrointestinal: denies: abdomen distended, abdominal pain, blood streaked bowels, constipated, diarrhea, dysphagia, difficulty swallowing, hematemesis, melena, nausea, poor appetite, poor fluid intake, rectal bleeding, rectal pain, vomiting, others Genitourinary: denies: burning, dysuria, flank pain, frequency, hematuria, incontinence, penile discharge, penile sore, pain, testicle pain, testicle swelling, urgency, others Neurological: denies: dizziness, fainting, headache, left sided numbness, left sided weakness, numbness, paresthesia, pre-existing deficit, right sided numbness, right sided weakness, seizure, speech problems, tingling, tremors, weakness, others Musculoskeletal: denies: back pain, gout, joint pain, joint swelling, muscle pain, muscle stiffness, neck pain, others Integumetry: reports: others (As stated in HPI) Allergic/Immunocompromised: reports: others (As stated in HPI) Hematologic/Lymphatic: denies: anemia, blood clots, easy bleeding, easy bruising, swollen glands, others Endocrine: denies: excessive hunger, excessive sweating, excessive thirst, excessive urination, flushing, intolerance to cold, intolerance to heat, unexplained weight gain, unexplained weight loss, others Psychiatric: denies: anxiety, bipolar disorder, depression, hopeless, panic d isorder, schizophrenia, sleepless, suicidal, others Physical Exam General Appearance: No Apparent Distress, Obese HEENT: Normal ENT Inspection, PERRL/EOMI, Pharynx Normal, TMs Normal Neck: Full Range of Motion, Non-Tender, Normal Respiratory: Chest Non-Tender, Lungs Clear, No Accessory Muscle Use, No Respiratory Distress, Normal Breath Sounds Cardiovascular: No Murmur, No Gallop, Regular Rate/Rhythm Breast Exam: Deferred Gastrointestinal: No Organomegaly, Non Tender, No Pulsatile Mass, Normal Bowel Sounds, Soft Genitalia: Deferred Pelvic: Deferred Rectal: Deferred Extremities: Normal capillary refill, Normal range of motion Neurologic: Alert, scenery builder II-XII nml as Tested, No Motor Deficits, Normal Affect, Normal Mood, No Sensory Deficits Cerebellar Function: Normal Reflexes: Normal Skin: Dry, Normal Color, Warm, Other (No urticaria/skin changes appreciated) Lymphatic: No Adenopathy Was a procedure done? Was a procedure done?: No Sedation Sedation?: No Differential diagnosis (all) Differential Diagnosis: Anaphylaxis, Angioedema, Contact Dermatitis X-Ray, Labs, Meds, VS Vital Signs Date Time Temp Pulse Resp B/P (MAP) Pulse Ox O2 Delivery O2 Flow Rate FiO2 01/09/25 20:10 18 96 Room Air* 0 21 01/09/25 20:10 97.8 116 18 150/78 (102) 96 97.8 Solu-Medrol 125 mg IM ordered Patient had improvement in symptoms and in no distress prior to discharge Advised on strict importance of following up with an vascular surgeon as soon as possible Advised to drink plenty of fluids Smoking/cannabis cessation discussed and advised Previous chart visits reviewed Advised to follow up with PCP in 1-2 days Patient verbalized understanding and agreeable with current plan of care Advised to return to ER immediately if symptoms worsen Time of 1ST Reevaluation: 20:12 Reevaluation 1ST: N/A Patient Education/Counseling: Diagnosis, Treatment, Prognosis, Need For Follow Up Family Education/Counseling: No Family Present SEPSIS Sepsis Screen Date sepsis recognized/suspect: Jan 09, 2025 Time Sepsis recognized/suspect: 2009 Recent Procedure: No On Antibiotic Therapy: No Respiratory Rate >20: No Heart Rate >90: Yes Temp<36 C (96.8 F) or >38.3 C: No SBP <90 or MAP <65 mmHG: No New Acute Mental Status Change: No Is the patient on CPAP, BIPAP,: No Vital Signs Date Time Temp Pulse Resp B/P (MAP) Pulse Ox O2 Delivery O2 Flow Rate FiO2 01/09/25 20:10 18 96 Room Air* 0 21 01/09/25 20:10 97.8 116 18 150/78 (102) 96 97.8 Departure 1 Departure Time of Disposition: 20:32 Impression: Primary Impression: Allergic reaction Qualified Codes: T78.40XA - Allergy, unspecified, initial encounter Disposition: HOME / SELF CARE / HOMELESS Condition: Stable e-Prescriptions Epinephrine (Epinephrine) 0.3 Mg/0.3 Ml Inj 0.3 MG IJ ONCE, #1 INJ 0 Refills Prov: ALEXEI BRISCOE 01/09/25 Prednisone (Prednisone) 20 Mg Tab 20 MG PO BID for 5 Days, #10 TAB 0 Refills Prov: ALEXEI BRISCOE 01/09/25 Diphenhydramine Hcl (Benadryl Allergy) 25 Mg Cap 2 CAP PO Q6HPRN, #30 CAP 0 Refills Prov: ALEXEI BRISCOE 01/09/25 Discharged With: Friend Critical Care Note Critical Care Time?: No Stability Stability form required: No Heart Score Heart Score: Heart Score Response (Comments) Value History N/A 0 EKG N/A 0 Age N/A 0 Risk Factors N/A 0 Troponin N/A 0 Total 0 ALEXEI BRISCOE Jan 09, 2025 20:38
[2025-01-09] MEDS ORDERED: EPIN0.3I24 IJ (20:39)
[2025-01-09] MEDS ORDERED: methylPREDNISolone SOD SUCC 125 MG/2 ML VL IM ONE (20:45)
== END 2025-01-09 23:38 | disposition home or self-care (01) ==
LOC: ER 20:03 → EDBD 20:03 → ER 23:38
DX: T78.40XA Allergy, unspecified, initial encounter (principal); F17.210 Nicotine dependence, cigarettes, uncomplicated; F10.90 Alcohol use, unspecified, uncomplicated; F12.90 Cannabis use, unspecified, uncomplicated; Z79.899 Other long term (current) drug therapy; X58.XXXA Exposure to other specified factors, initial encounter; Y90.9 Presence of alcohol in blood, level not specified